=== PATIENT | male | born 1975 | race Caucasian/White ===

== ENCOUNTER 2022-12-29 08:31 | Emergency (ER) | payer OTHER ==
[~2022-12-29] VITALS: Ht 172.7 cm; Wt 90.7 kg
--- NOTE | 2022-12-29 08:31 | NUR ---
TO ER BED 11. BIB C/O L SIDED FLANK ACHING PAIN STARTED LAST NIGHT PAIN 4/10 ON PAIN SCALE BUT STATED THAT IT CAN GO UP TO 8/10. PT STATED THAT HE HAS BEENHAVING TROUBLE URINATING. WARM BLANKET PROVIDED FOR COMFORT. AWAITING MD ALEXIS.
--- NOTE | 2022-12-29 08:36 | NUR ---
PT UNABLE TO PROVIDE URINE AT THIS TIME, URINE SAMPLE CUP PROVIDED.
--- NOTE | 2022-12-29 08:40 | NUR ---
DR. MARTINEZ AT BEDSIDE
--- NOTE | 2022-12-29 09:00 | NUR ---
iv INSERTED L HAND 20 G
--- NOTE | 2022-12-29 09:06 | NUR ---
bld tech at bedside bld being drawn
[2022-12-29 09:16] LABS: BASOPHILS # (AUTO) 0.1 K/uL (0.0-0.2); BASOPHILS % (AUTO) 0.7 % (0.0-2.0); EOSINOPHILS % (AUTO) 1.7 % (0.0-6.0); HEMATOCRIT 42 % (39-51); HEMOGLOBIN 13.9 g/dL (13.5-17.5); LYMPHOCYTES # (AUTO) 1.3 K/uL (0.8-4.8); LYMPHOCYTES % (AUTO) 15.3 % (20.0-44.0); MEAN CORPUSCULAR HGB CONC 33 g/dl (31.0-36.0); MEAN CORPUSCULAR VOLUME 90 fL (80-96); MONOCYTES # (AUTO) 0.5 K/uL (0.1-1.30); NEUTROPHILS # (AUTO) 6.5 K/uL (1.8-8.9); NEUTROPHILS % (AUTO) 76.3 % (43.0-81.0); PLATELET COUNT (AUTO) 306 K/uL (150-450); RED BLOOD CELL COUNT(AUTO) 4.68 MIL/uL (4.5-6.0); WHITE BLOOD COUNT (AUTO) 8.5 K/uL (4.3-11.0)
--- NOTE | 2022-12-29 09:18 | NUR ---
URIN SAMPLE COLLECTED SENT TO LAB PROVIDE A WARM BLANKET, AFTER PUTTING BP CUFF
--- NOTE | 2022-12-29 09:28 | NUR ---
PATIENT TAKEN TO CT VIA [facility]
--- NOTE | 2022-12-29 09:38 | NUR ---
PT BACK FROM CT HOOKED TO BP AND O2 SAT MONITOR
[2022-12-29 09:39] LABS: ALBUMIN 3.9 g/dL (3.4-5.0); BILIRUBIN,DIRECT 0.1 mg/dL (0.0-0.2); BILIRUBIN,TOTAL 0.4 mg/dL (0.2-1.0); CALCIUM, SERUM 9.3 mg/dL (8.5-10.1); CREATININE 1.2 mg/dL (0.6-1.3); POTASSIUM 3.8 mmol/L (3.5-5.1); TOTAL PROTEIN, SERUM 7.2 g/dL (6.4-8.2)
[2022-12-29] MEDS ORDERED: IV NS 0.9% 1,000 ML BAG IV ONE (10:30)
[2022-12-29] MEDS ORDERED: TAMSULOSIN 0.4 MG CAP.SR.24H PO ONE (10:30)
[2022-12-29] MEDS ORDERED: KETOROLAC TROMETHAMINE INJ 30 MG/ML VIAL IV ONE (10:30)
[2022-12-29] MEDS ORDERED: KETOROLAC TROMETHAMINE 15 MG/ML VIAL ONE (10:31)
[2022-12-29] MEDS ORDERED: TAMSULOSIN 0.4 MG CAP.SR.24H ONE (10:32)
[2022-12-29 10:38] LABS: BILIRUBIN,URINE NEGATIVE (NEGATIVE); COLOR,URINE YELLOW (YELLOW); LEUKOCYTE ESTERASE ,URINE NEGATIVE (NEGATIVE); NITRITE, URINE NEGATIVE (NEGATIVE); PH,URINE 5.5 (5.0-8.0); PROTEIN,URINE NEGATIVE (NEGATIVE); UGLUCOSE NEGATIVE (NEGATIVE); UROBILINOGEN,URINE 0.2 EU/dL (0.2)
[2022-12-29 11:00] LABS: BACTERIA,URINE None seen /HPF (None Seen); SQUAMOUS EPITHELIAL CELL,UR Rare /HPF (None Seen); WBC,URINE 0-2 /HPF (0-3)
[2022-12-29] MEDS ORDERED: TAMS-12 PO (11:13)
[2022-12-29] MEDS ORDERED: HYDR-3980 PO (11:13)
--- NOTE | 2022-12-29 11:34 | NUR ---
PATIENT GIVEN WATER FOR DRINKING AND MADE COMFORTABLE
--- NOTE | 2022-12-29 12:03 | NUR ---
IV LINE , UNHOOKED TO O2 SAT AND BP CUFF. READY TO DEPART
--- NOTE | 2022-12-29 12:04 | NUR ---
IVFLUID DONE AND REMOVED
--- NOTE | 2022-12-29 12:09 | NUR ---
Shon chester in [facility] - 12/29/22 at 1210 by JT IV FLUID DONE
[2022-12-29 12:12] VITALS: BP 121/55
== END 2022-12-29 12:09 | disposition home or self-care (01) ==
LOC: ER 08:37
DX: N20.0 Calculus of kidney (principal); Z88.8 Allergy status to other drugs, medicaments and biological substances
CPT/HCPCS: 99285; 74176; 96374; 96361; 85025; 80048; 83690; 80076; 81001; 36415; J7030; J1885